=== PATIENT | female | born 1970 | race African-American/Black ===

== ENCOUNTER 2021-07-20 06:27 | Inpatient (IN) ==
[2021-07-20] MEDS: ANCEF VIAL 1 GRAM IVP ONE ×2 (06:38→07:10)
[2021-07-20] MEDS ORDERED: ANCEF 1 GRAM IV PREMIX* 2 G/100 ML BAG IV ONE (06:40)
[2021-07-20] MEDS ORDERED: D5 1/2 NS 1,000 ML 1,000 ML IV ONE (06:40)
[2021-07-20] MEDS ORDERED: ProvayBLUE 0.5% ONE (06:51)
[2021-07-20] MEDS ORDERED: BETADINE SOLN ONE (06:51)
[2021-07-20] MEDS: D5 1/2 NS 1,000 ML 1,000 ML IV SCH ×4 (07:00→22:28)
[2021-07-20] MEDS ORDERED: DECADRON INJ ONE (07:01)
[2021-07-20] MEDS ORDERED: BRIDION ONE (07:01)
[2021-07-20] MEDS ORDERED: DILAUDID INJ ONE ×2 (07:01→10:56)
[2021-07-20] MEDS ORDERED: FENTANYL VIAL INJ 100 mcg ONE (07:02)
[2021-07-20] MEDS ORDERED: OFIRMEV IV 1000 MG VIAL 1,000 MG/100 ML VIAL IV ONE (07:02)
[2021-07-20] MEDS ORDERED: PEPCID 20 MG IV PREMIX* 50 ML IV ONE (07:02)
[2021-07-20] MEDS ORDERED: ZEMURON 50 MG VIAL ONE (07:03)
[2021-07-20 07:18] VITALS: BMI 37.3
[2021-07-20] MEDS ORDERED: TORADOL 30 MG VIAL ONE (07:22)
[2021-07-20] MEDS ORDERED: ZOFRAN INJ 4 MG VIAL ONE (07:22)
[2021-07-20] MEDS ORDERED: ROBINUL ONE (07:22)
[2021-07-20] MEDS ORDERED: VERSED ONE (07:22)
[2021-07-20] MEDS ORDERED: DIPRIVAN VIAL ONE (07:22)
[2021-07-20] MEDS ORDERED: LACRI-LUBE S.O.P. ONE (07:22)
[2021-07-20] MEDS ORDERED: XYLOCAINE 2 % (PLAIN) ONE (07:22)
[2021-07-20] MEDS ORDERED: KETALAR ONE (07:22)
[2021-07-20] MEDS ORDERED: LR 1,000 ML IV 1,000 ML IV ONE (08:36)
[2021-07-20] MEDS ORDERED: BENADRYL INJ 50 MG VIAL IVP PRN ×2 (09:31→10:50)
[2021-07-20] MEDS ORDERED: PHENERGAN INJ 25 MG IM PRN (09:31)
[2021-07-20] MEDS ORDERED: DILAUDID INJ IVP PRN (09:31)
[2021-07-20] MEDS ORDERED: BARHEMSYS INJ IVP PRN (09:31)
[2021-07-20] MEDS ORDERED: D5 1/2 NS 1,000 ML 1,000 ML IV SCH (11:00)
[2021-07-20] MEDS: MORPHINE SULFATE PCA 30 MG IVP PRN ×2 (11:42→22:55)
[2021-07-20] MEDS: TORADOL 30 MG VIAL IVP PRN ×3 (13:36→22:22)
[2021-07-20] MEDS: SINGULAIR TAB 10 MG PO SCH (20:15)
[2021-07-20] MEDS: BUSPAR PO SCH (20:15)
[2021-07-20] MEDS: PEPCID TAB 20 MG PO SCH (20:15)
[2021-07-21] MEDS: MORPHINE SULFATE PCA 30 MG IVP PRN (04:00)
[2021-07-21] MEDS: TORADOL 30 MG VIAL IVP PRN (04:00)
[2021-07-21] MEDS: D5 1/2 NS 1,000 ML 1,000 ML IV SCH ×3 (04:49→15:24)
[2021-07-21 05:03] LABS: BASOPHILS # (AUTO) 0.1 X10^3/uL (0.0-0.1); BASOPHILS % (AUTO) 0.8 % (0.2-1.0); HEMATOCRIT 24.2 % (36.0-47.0); HEMOGLOBIN 7.8 g/dL (12.0-16.0); LYMPHOCYTES # (AUTO) 2.5 X10^3/uL (1.3-2.9); LYMPHOCYTES % (AUTO) 16.1 % (21.0-51.0); MEAN CORPUSCULAR HEMOGLOBIN 25.3 pg (27.0-34.0); MEAN CORPUSCULAR HGB CONC 32.2 g/dL (33.0-35.0); MEAN CORPUSCULAR VOLUME 78.6 fL (80.0-100.0); MEAN PLATELET VOLUME 8.9 fL (7.4-11.0); MONOCYTES # (AUTO) 1.4 x10^3/uL (0.3-0.8); MONOCYTES % (AUTO) 9.2 % (0.0-13.0); NEUTROPHILS # (AUTO) 11.5 x10^3/uL (2.2-4.8); NEUTROPHILS % (AUTO) 73.9 % (42.0-75.0); PLATELET COUNT 291 X10^3/uL (150.0-450.0); RED BLOOD COUNT 3.08 X10^6/uL (3.5-5.4); RED CELL DISTRIBUTION WIDTH 17.8 % (11.6-16.5); WHITE BLOOD COUNT 15.5 X10^3/uL (3.6-10.0)
[2021-07-21 05:07] LABS: BLOOD UREA NITROGEN 10 mg/dL (7-18); CALCIUM 8.1 mg/dL (8.5-10.1); CARBON DIOXIDE 23.3 mmol/L (21-32); CHLORIDE 100 mmol/L (98-107); COR NA(FOR HYPERGLY) 134 mmol/L (136-145); CREATININE 1.11 mg/dL (0.55-1.02); SODIUM 133 mmol/L (136-145); eGFR NON BLACK RACES 55 (>60)
[2021-07-21] MEDS ORDERED: MOTRIN TAB 800 MG PO PRN (07:29)
[2021-07-21] MEDS ORDERED: AMBIEN PO PRN (07:29)
[2021-07-21] MEDS: BUSPAR PO SCH ×2 (08:11→20:39)
[2021-07-21] MEDS: HYDROCHLOROTHIAZIDE 12.5 MG CAP PO SCH (08:11)
[2021-07-21] MEDS: COLACE CAP 100 MG PO SCH ×2 (08:11→20:39)
[2021-07-21] MEDS: FLONASE NASAL SPRAY ENOSTRIL SCH (08:11)
[2021-07-21] MEDS: LOTENSIN TAB 10 MG PO SCH (08:12)
[2021-07-21] MEDS: PERCOCET TAB 5/325 MG PO PRN ×3 (10:07→19:10)
[2021-07-21] MEDS: ZOFRAN INJ 4 MG VIAL IVP PRN ×2 (10:07→18:04)
[2021-07-21] MEDS: BACTROBAN TOPICAL OINT TOP SCH ×2 (13:32→22:06)
[2021-07-21] MEDS: FERROUS GLUCONATE PO SCH (17:52)
[2021-07-21] MEDS: PEPCID TAB 20 MG PO SCH (20:39)
[2021-07-21] MEDS: SINGULAIR TAB 10 MG PO SCH (20:39)
[2021-07-22] MEDS: D5 1/2 NS 1,000 ML 1,000 ML IV SCH ×3 (00:09→05:52)
[2021-07-22] MEDS: PERCOCET TAB 5/325 MG PO PRN ×2 (04:46→09:06)
[2021-07-22] MEDS: ZOFRAN INJ 4 MG VIAL IVP PRN (04:46)
[2021-07-22] MEDS: BACTROBAN TOPICAL OINT TOP SCH (05:52)
[2021-07-22] MEDS: FERROUS GLUCONATE PO SCH (06:30)
[2021-07-22 08:01] VITALS: BP 109/67
[2021-07-22] MEDS: BUSPAR PO SCH (08:42)
[2021-07-22] MEDS: HYDROCHLOROTHIAZIDE 12.5 MG CAP PO SCH (08:42)
[2021-07-22] MEDS: FLONASE NASAL SPRAY ENOSTRIL SCH (08:42)
[2021-07-22] MEDS: COLACE CAP 100 MG PO SCH (08:42)
[2021-07-22] MEDS: LOTENSIN TAB 10 MG PO SCH (08:43)
== END 2021-07-22 09:30 | disposition home or self-care (01) | DRG 743 ==
LOC: MED/SURG 06:27
PROVIDERS: ADMIT Specialist; ATTEND Specialist